=== PATIENT | female | born 1965 | race Caucasian/White ===

== ENCOUNTER 2024-01-07 06:49 | Day surgery (SDC) | payer BC ==
[2024-01-03 11:41] LABS: BASOPHILS % (AUTO) 0.2 % (0-1); EOSINOPHILS # (AUTO) 0.1 X10'3 (0-0.9); EOSINOPHILS % (AUTO) 2.1 % (0-6); LYMPHOCYTES # (AUTO) 1.9 X10'3 (1.1-4.8); LYMPHOCYTES % (AUTO) 29.3 % (21-51); MEAN CORPUSCULAR HEMOGLOBIN 28.6 PG (27.0-31.0); MEAN CORPUSCULAR HGB CONC 32.3 g/dL (33.0-36.5); MEAN CORPUSCULAR VOLUME 88.5 FL (78-98); MEAN PLATELET VOLUME 8.6 FL (7.4-10.4); MONOCYTES # (AUTO) 0.4 X10'3 (0-0.9); MONOCYTES % (AUTO) 5.8 % (2-12); NEUTROPHILS % (AUTO) 62.6 % (42-75); PRE OP HEMATOCRIT 42.6 % (35.0-45.0); PRE OP HEMOGLOBIN 13.8 g/dL (12.0-16.0); PRE OP PLATELET COUNT 284 X10'3 (140-440); PRE OP WHITE BLOOD COUNT 6.4 10'3 (4.8-10.8); RED BLOOD COUNT 4.81 X10'6 (4.20-5.60); RED CELL DISTRIBUTION WIDTH 14.2 % (11.5-14.5)
[2024-01-03 11:54] LABS: ALBUMIN 3.6 G/DL (3.4-5.0); ALBUMIN/GLOBULIN RATIO 0.9 (1.1-1.5); ALKALINE PHOSPHATASE 95 IU/L (46-116); BLOOD UREA NITROGEN 14 MG/DL (7-18); BUN/CREATININE RATIO 17.5 (10.0-20.0); CALCIUM 8.8 MG/DL (8.5-10.1); CHLORIDE 107 MMOL/L (99-107); PRE OP ALT 32 U/L (30-65); PRE OP ANION GAP 8 (8-16); PRE OP AST 23 U/L (10-37); PRE OP BILIRUB, TOTAL 0.4 MG/DL (0.0-1.0); PRE OP GLUCOSE 91 MG/DL (70-104); PRE OP SODIUM 141 MMOL/L (135-145); TOTAL CARBON DIOXIDE 26.2 MMOL/L (24-32); TOTAL PROTEIN 7.7 G/DL (6.4-8.2); eGFR 73 ML/MIN
[~2024-01-07] VITALS: Ht 172.7 cm; Wt 95.3 kg
[2024-01-07] VITALS (9 sets, daily range): BP systolic 108–152; BP diastolic 72–80; PULSE 68–90; RESP 14–19; TEMP 98.7; O2SAT 94–99
[2024-01-07] MEDS: cefazolin 2gm/D5W 100mL 100 ML IV ONE (05:30)
[~2024-01-07 06:49] MED LIST: ALBU18HF2 INH; BUPIVAcaine 2.5mg/ml inj 50ml vial (contains preservative) ONE; LIDOcaine 1% (10mg/ml)w/preservative inj. 20ml MDV ONE; LOSA100T58 PO
[2024-01-07] MEDS: famotidine 20mg tablet PO ONE (06:59)
[2024-01-07] MEDS: ringers solution, lacted 1,000 ML IV SCH (06:59)
[2024-01-07] MEDS ORDERED: sevoflurane 250ml liquid IH ONE (07:48)
[2024-01-07] MEDS ORDERED: fentaNYL/PF 50MCG/1 ML 2ML syringe ONE (07:52)
[2024-01-07] MEDS ORDERED: midazolam 1 mg/ML 2ml injection ONE (07:52)
[2024-01-07] MEDS ORDERED: propofol inj 20 ML IV ONE (07:56)
[2024-01-07] MEDS ORDERED: meperidine/PF 25mg/ml syringe IV PRN ×2 (08:35)
[2024-01-07] MEDS ORDERED: morphine 2 MG/ML inj. syringe IV PRN (08:35)
[2024-01-07] MEDS ORDERED: ringers solution, lacted 1,000 ML IV SCH (08:35)
[2024-01-07] MEDS ORDERED: ondansetron/PF 4mg/2ml inj IV PRN (08:35)
[2024-01-07] MEDS ORDERED: proCHLORperazine 10 MG/2 ml inj IV PRN (08:35)
[2024-01-07] MEDS ORDERED: dexamethasone sod phosphate 4mg/ml inj. ONE (08:58)
[2024-01-07] MEDS ORDERED: ondansetron/PF 4mg/2ml inj ONE (08:58)
[2024-01-07] MEDS: meperidine/PF 25mg/ml syringe IV PRN (09:41)
[2024-01-07] MEDS: morphine 4 MG/ML inj SYRINge IV PRN (09:57)
== END 2024-01-07 10:32 | disposition home or self-care (01) ==
LOC: PAS 06:49
PROVIDERS: ATTEND Surgery
DX: C50.212 Malignant neoplasm of upper-inner quadrant of left female breast (principal); C77.3 Secondary and unspecified malignant neoplasm of axilla and upper limb lymph nodes; I10 Essential (primary) hypertension; E66.9 Obesity, unspecified; J45.909 Unspecified asthma, uncomplicated; E89.0 Postprocedural hypothyroidism; Z79.2 Long term (current) use of antibiotics; Z79.891 Long term (current) use of opiate analgesic; Z79.899 Other long term (current) drug therapy; Z90.710 Acquired absence of both cervix and uterus; Z90.49 Acquired absence of other specified parts of digestive tract; Z68.31 Body mass index [BMI] 31.0-31.9, adult; Z91.013 Allergy to seafood; Z88.8 Allergy status to other drugs, medicaments and biological substances
CPT/HCPCS: 19301; 36415; 38525; 38792; 64420; 64421; 80053; 82948; 85025; 93005; J0690; J1100; J2175; J2250; J2270; J2405; J2704; J3010; J3490; J7030; J7120; Z7506; Z7508; Z7512; A4215; A4618; A6449; A7000